=== PATIENT | female | born 1945 | race Caucasian/White ===

== ENCOUNTER 2022-01-28 10:23 | Emergency (ER) | payer MEDICARE, OTHER ==
[~2022-01-28] VITALS: Wt 118.3 kg
[2022-01-28 11:12] LABS: BASO # 0.02 K/mm3 (0.02-0.10); EOS # 0.01 K/mm3 (0.04-0.40); EOS % 0.1 % (1.0-5.0); LYMPH# 0.61 K/mm3 (1.50-4.00); MEAN CELL VOLUME 94 fl (78-100); MEAN CORPUSCULAR HEMOGLOBIN 30 pg (27-31); MEAN CORPUSCULAR HGB CONC 32 g/dL (33-37); MEAN PLATELET VOLUME 10.8 fl (7.4-10.4); MONO # 0.56 K/mm3 (0.20-0.80); NEU # 9.85 K/mm3 (1.40-6.50); PLATELET COUNT 182 K/mm3 (130-400); RED BLOOD COUNT 3.95 M/mm3 (4.10-5.30); RED CELL DISTRIBUTION WIDTH 15.1 % (11.5-14.5); WHITE BLOOD COUNT 11.1 K/mm3 (4.8-10.8)
[2022-01-28 11:36] LABS: ALBUMIN 3.9 g/dL (3.4-4.8)
[2022-01-28 11:37] LABS: POTASSIUM 4.9 mmol/L (3.5-5.1)
[2022-01-28 11:38] LABS: CALCIUM 10.4 mg/dL (8.3-10.5)
[2022-01-28 11:39] LABS: TOTAL PROTEIN 6.8 g/dL (6.2-8.1)
[2022-01-28 11:41] LABS: TOTAL BILIRUBIN 0.4 mg/dL (0.2-1.2)
[2022-01-28] MEDS ORDERED: ALBUTEROL2.5 MG/3 M IH (12:45)
[2022-01-28] MEDS ORDERED: PROAIR HFA0.09 MG/AC IH (12:45)
[2022-01-28] MEDS ORDERED: NORVASC 10MG10 MG PO (12:46)
[2022-01-28] MEDS ORDERED: BROVANA15 MCG/2 M IH (12:46)
[2022-01-28] MEDS ORDERED: TENORMIN25 MG PO (12:47)
[2022-01-28] MEDS ORDERED: ASPIRIN E.C. 8181 MG PO (12:47)
[2022-01-28] MEDS ORDERED: BUDESONIDE0.5 MG/2 M IH (12:48)
[2022-01-28] MEDS ORDERED: TRESIBA100 UNIT/1 SQ (12:49)
[2022-01-28] MEDS ORDERED: ATROVENT I0.2 MG/1 M IH (12:51)
[2022-01-28] MEDS ORDERED: INSULIN HUMA100 U/ML SQ (12:51)
[2022-01-28] MEDS ORDERED: SINGULAIR PO (12:52)
[2022-01-28] MEDS ORDERED: OZEMPIC1 MG/0.71 SQ (12:52)
[2022-01-28] MEDS ORDERED: DESYREL50 MG PO (12:53)
[2022-01-28] MEDS ORDERED: FISH OIL 1000MG1 CAP PO (12:53)
[2022-01-28] MEDS ORDERED: AMITRIPTYLINE H50 M1 PO (12:54)
[2022-01-28] MEDS ORDERED: VALSARTAN160 M1 PO (12:54)
[2022-01-28] MEDS ORDERED: FLONASE ALLERG9.9 ML NS (12:54)
[2022-01-28] MEDS ORDERED: HCTZ 25MG25 MG PO (12:55)
[2022-01-28] MEDS ORDERED: NEURONTIN300 M1 PO (12:55)
[2022-01-28] MEDS ORDERED: LEVOTHYROXINE175 MCG PO ×2 (12:57)
[2022-01-28] MEDS ORDERED: CRESTOR40 MG PO (12:57)
[2022-01-28 13:17] VITALS: BP 142/72
[2022-01-29] MEDS ORDERED: CALCIUM CITRATE1 TA1 PO (08:01)
[2022-01-29] MEDS ORDERED: COLESTID 1GM1 G PO (08:01)
[2022-01-29] MEDS ORDERED: MULTI-VITAMIN1 EACH PO (08:02)
[2022-01-29] MEDS ORDERED: OMEPRAZOLE40 MG PO (08:02)
[2022-01-29] MEDS ORDERED: ZITHROMAX 250M250 MG PO (15:10)
== END 2022-01-28 13:30 | disposition other institution (70) ==
LOC: ED 10:23
PROVIDERS: Family Medicine
DX: J44.9 Chronic obstructive pulmonary disease, unspecified (principal); E11.9 Type 2 diabetes mellitus without complications; J18.9 Pneumonia, unspecified organism; E66.01 Morbid (severe) obesity due to excess calories; Z20.822 Contact with and (suspected) exposure to COVID-19; Z79.4 Long term (current) use of insulin; Z91.14 Patient's other noncompliance with medication regimen
CPT/HCPCS: J0696; J7050

== ENCOUNTER 2022-01-28 13:12 | Inpatient (IN) | payer MEDICARE, OTHER ==
[~2022-01-28] VITALS: Ht 160 cm; Wt 117.8 kg
[~2022-01-28 13:12] MED LIST: ALBUTEROL2.5 MG/3 M IH; AMITRIPTYLINE H50 M1 PO; ASPIRIN E.C. 8181 MG PO; ATROVENT I0.2 MG/1 M IH; BROVANA15 MCG/2 M IH; BUDESONIDE0.5 MG/2 M IH; CRESTOR40 MG PO; DESYREL50 MG PO; FISH OIL 1000MG1 CAP PO; FLONASE ALLERG9.9 ML NS; HCTZ 25MG25 MG PO; INSULIN HUMA100 U/ML SQ; LEVOTHYROXINE175 MCG PO; NEURONTIN300 M1 PO; NORVASC 10MG10 MG PO; OZEMPIC1 MG/0.71 SQ; PROAIR HFA0.09 MG/AC IH; SINGULAIR PO; TENORMIN25 MG PO; TRESIBA100 UNIT/1 SQ; VALSARTAN160 M1 PO
--- NOTE | 2022-01-28 13:30 | NUR ---
Patient admitted from ED for SOA, pneumonia. A&Ox4, 2L per NC, no c/o pain or discomfort. Patient in gown with personal undergarments on. took personal belongings home. Patient lives 2 [place] from [place]. 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 She reports feeling SOA, weakness and fatigue for past week. O2 per NC placed in ED. Unable to maintain PSO2 sats >90% on RA. Admitted to room 304. SBA with gaitbelt and walker. Ambulated x2 with gait belt and walker from bed to chair. Sitting up in chair eating lunch. BG 289, medication give, as ordered per SSI and schedule AC per Dr. Madera. Reports a fine tremor in bilateral hands. This finding is new for patient since presenting to ED. She inquires about the source or cause of that tremor. Pleasant with staff. to return in the AM. He will have patient's home med. Chair in locked position. Call light within reach.
[2022-01-28 14:07] VITALS: BP 142/84
[2022-01-28 16:31] VITALS: BP 135/75
--- NOTE | 2022-01-28 19:45 | NUR ---
Pt up in chair at 2 L/NC. Noted to be a shallow breather and encouraged deeper breaths. Incentive spirometer given to pt and instructed on it's use and understanding verbalized - pulls 500 - 750. Lungs with coarse crackles in Left base. here and has brought pt's tresiba pen in (home med to be used) and also brings in pt's pill container so we can tell which meds pt takes in am and which in pm. Meds taken to med room. Tele on and shows RSR rates 90's. Pt reports that they use [facility] if any meds are needed. INT intact in right AC without redness or edema. Call light in reach and chair alarm on.
[2022-01-28 21:40] VITALS: BP 120/67
--- NOTE | 2022-01-28 22:50 | NUR ---
Report received from Rasheeda PONCE. Patient resting in bed with eyes closed. Oxygen in place at 2L/NC. IV Doxycycline started at this time to run over 1 hour. IV site to RAC patent and flushed easily with NS. Bed alarm on. Call light in reach.
--- NOTE | 2022-01-28 23:49 | NUR ---
IV Antibiotic completed. INT flushed easily with 10 cc NS. Sleeps soundly with oxygen in place at 2L/NC.
--- NOTE | 2022-01-29 05:38 | NUR ---
Rested well all night. Awakened for vital signs and AM medications. States slept well. O2 level 95% on 2L/NC. Used I.S. and pulled 500 MLx10 reps. States throat sore from coughing.
[2022-01-29 06:04] VITALS: BP 128/65
--- NOTE | 2022-01-29 07:00 | NUR ---
REPORT RECIEVED FROM STACY ARIAS.
--- NOTE | 2022-01-29 07:05 | NUR ---
Report to Renee PONCE.
--- NOTE | 2022-01-29 07:30 | NUR ---
PATIENT CURRENTLY RESTING IN BED WITH EYES CLOSED. BED IN LOWEST LOCKED POSTION, CALL LIGHT WITHIN REACH.
[2022-01-29] MEDS ORDERED: CALCIUM CITRATE1 TA1 PO (08:01)
[2022-01-29] MEDS ORDERED: COLESTID 1GM1 G PO (08:01)
[2022-01-29] MEDS ORDERED: MULTI-VITAMIN1 EACH PO (08:02)
[2022-01-29] MEDS ORDERED: OMEPRAZOLE40 MG PO (08:02)
--- NOTE | 2022-01-29 09:00 | NUR ---
PATIENT UP TO CHAIR FOR MORNING MEAL. A&OX4, DENIES PAIN. PATIENT STATES "NOT SHAKY TODAY AND I AM THINKING MORE CLEARLY." PATIENT IS CONCERNED ABOUT WHAT THE DISCHARGE PLAN IS [place] FROM [place]. WILL SPEAK WITH PROVIDER. O2 STAT ON 2L IS 95%. O2 TURNED DOWN TO 1L AT THIS TIME. PATIENT VERBILIZED UNDERSTANDING AND HAS NO QUESTIONS AT THIS TIME. DENIES FURTEHR NEEDS OR COMPLAINTS AT THIS TIME. CHAIR ALARM ON, CALL LIGHT WITHIN REACH.
--- NOTE | 2022-01-29 09:30 | NUR ---
PATIENT O2 STAT REAMINS STABLE AT 94% ON 1L. 02 TURNED OFF AT THIS TIME.
[2022-01-29 09:50] VITALS: BP 158/75
--- NOTE | 2022-01-29 10:15 | NUR ---
PATIENT O2 REMAINS STABLE AT 92-93% ON RA. DENIES SOB.
[2022-01-29 13:11] LABS: BASO # 0.02 K/mm3 (0.02-0.10); EOS # 0.05 K/mm3 (0.04-0.40); EOS % 0.5 % (1.0-5.0); HEMATOCRIT 33.6 % (37.0-47.0); HEMOGLOBIN 10.7 g/dL (12.5-16.0); LYMPH# 1.16 K/mm3 (1.50-4.00); MEAN CELL VOLUME 96 fl (78-100); MEAN CORPUSCULAR HEMOGLOBIN 31 pg (27-31); MEAN CORPUSCULAR HGB CONC 32 g/dL (33-37); MEAN PLATELET VOLUME 10.5 fl (7.4-10.4); NEU # 8.24 K/mm3 (1.40-6.50); PLATELET COUNT 175 K/mm3 (130-400); RED BLOOD COUNT 3.51 M/mm3 (4.10-5.30); RED CELL DISTRIBUTION WIDTH 15.5 % (11.5-14.5)
[2022-01-29 13:21] LABS: POTASSIUM 4.2 mmol/L (3.5-5.1)
[2022-01-29 13:41] VITALS: BP 127/72
--- NOTE | 2022-01-29 14:00 | NUR ---
PATIENT REAMINS PLEASENT AND COOPERATIVE WITH CARES. CONTINUES TO DENY SOB, DIFFICULTY BREATHING ON RA. STATES "FEELING MUCH BETTER TODAY." PROVIDER AWARE OF PATIENT QUESTIONS REGARDING DISCHARGE. PATIENT CURRENTLY UP TO CHAIR, OFFERS NO NEEDS OR COMPLAINTS AT THIS TIME. CHAIR ALARM ON. CALL LIGHT WITHIN REACH. WILL CONTINUE TO MONITOR.
--- NOTE | 2022-01-29 14:44 | NUR ---
PATIENT UP TO SHOWER. RED AREAS IN ABDOMINAL FOLDS. PATIENT STATES "I USE VASALINE AT HOME." INTERDRY APPLIED. EDUCATED PATIENT ON KEEPING FOLDS CLEAN AND DRY. PATIENT VERBILIZED UNDERSTANDING. PATIENT CURRENTLY RESTING IN BED. BED IN LOWEST LOCKED POSTION, CALL LIGHT WITHIN REACH.
--- NOTE | 2022-01-29 15:00 | NUR ---
PROVIDER INTO SEE PATIENT.
[2022-01-29] MEDS ORDERED: ZITHROMAX 250M250 MG PO (15:10)
--- NOTE | 2022-01-29 15:30 | NUR ---
PATIENT AWARE OF PLAN TO DISCHARGE. PATIENTS FAMILY WILL RETURN AT 1800 TO PICK PATIENT UP. ALL PATIENT QUESTIONS HAVE BEEN ANSWERED.
[2022-01-29 16:46] VITALS: BP 118/69
--- NOTE | 2022-01-29 18:00 | NUR ---
PATIENT DISCHARGED HOME VIA WHEELCHAIR IN CARE OF . DISHCARGE INSTRUCTIONS REVIEWED, ALL PATIENT QUESTIONS ANSWERED. ALL PATIENT ITEMS AND BELONGINGS SENT HOME WITH PATIENT.
--- NOTE | 2022-01-29 18:10 | NUR ---
PATIENT DISCHARGED HOME VIA WHEELCHAIR IN CARE OF . DISHCARGE INSTRUCTIONS REVIEWED, ALL PATIENT QUESTIONS ANSWERED. ALL PATIENT ITEMS AND BELONGINGS SENT HOME WITH PATIENT.
== END 2022-01-29 18:10 | disposition home or self-care (01) | DRG 194 ==
LOC: MED/SURG 13:12
PROVIDERS: ADMIT Family Medicine
DX: J18.9 Pneumonia, unspecified organism (principal); J44.0 Chronic obstructive pulmonary disease with (acute) lower respiratory infection; R65.10 Systemic inflammatory response syndrome (SIRS) of non-infectious origin without acute organ dysfunction; Z68.42 Body mass index [BMI] 45.0-49.9, adult; R09.02 Hypoxemia; E11.9 Type 2 diabetes mellitus without complications; I10 Essential (primary) hypertension; E03.9 Hypothyroidism, unspecified; R00.0 Tachycardia, unspecified; G47.30 Sleep apnea, unspecified; E78.5 Hyperlipidemia, unspecified; E66.01 Morbid (severe) obesity due to excess calories; Z79.4 Long term (current) use of insulin; Z88.5 Allergy status to narcotic agent; Z20.822 Contact with and (suspected) exposure to COVID-19; Z91.14 Patient's other noncompliance with medication regimen
CPT/HCPCS: J0696; J1650; J1815; J7050